=== PATIENT | male | born 1995 | race African-American/Black ===

== ENCOUNTER 2022-03-21 17:49 | Emergency (ER) | payer BC, OTHER ==
[~2022-03-21] VITALS: Ht 170.2 cm; Wt 81.6 kg
[2022-03-21 18:18] VITALS: BP_SYST 124
[2022-03-21] MEDS ORDERED: NAPR-1172 PO (19:16)
[2022-03-21 19:25] VITALS: BP_SYST 124
== END 2022-03-21 19:25 | disposition home or self-care (01) ==
LOC: SED 17:49
DX: S93.402A Sprain of unspecified ligament of left ankle, initial encounter (principal); Z79.899 Other long term (current) drug therapy; W21.05XA Struck by basketball, initial encounter; Y93.67 Activity, basketball; Y92.89 Other specified places as the place of occurrence of the external cause; Y99.8 Other external cause status
CPT/HCPCS: 99283

== ENCOUNTER 2023-03-07 12:30 | Emergency (ER) | payer BC, OTHER ==
[~2023-03-07] VITALS: Ht 170.2 cm; Wt 90.7 kg
[~2023-03-07 12:30] MED LIST: NAPR-1172 PO
[2023-03-07 12:47] VITALS: BP_SYST 131; PULSE 59; RESP 18; TEMP 97.6; O2SAT 100
[2023-03-07 13:13] LABS: STREPTOCOCCUS A SCREEN (RAPID) NEGATIVE (NEGATIVE)
[2023-03-07 13:19] LABS: COVID19 ANTIGEN SOFIA FIA NEGATIVE (NEGATIVE)
[2023-03-07 13:20] LABS: INFLUENZA TYPE A Negative (NEGATIVE); INFLUENZA TYPE B NEGATIVE (NEGATIVE)
[2023-03-07] MEDS ORDERED: IBUP-1971 PO (14:31)
[2023-03-07] MEDS ORDERED: PSEU30TA36 PO (14:31)
== END 2023-03-07 14:39 | disposition left against medical advice (07) ==
LOC: SED 12:30
DX: J02.9 Acute pharyngitis, unspecified (principal); Z79.899 Other long term (current) drug therapy; Z20.822 Contact with and (suspected) exposure to COVID-19
CPT/HCPCS: 36415; 86403; 87081; 99283